=== PATIENT | female | born 1975 | race African-American/Black ===

== ENCOUNTER 2019-12-01 02:43 | Emergency (ER) | payer OTHER ==
--- NOTE | 2019-12-01 03:41 | PDOC ---
History of Present Illness - General Stated Complaint: DIARRHEA,WEAKNESS Time Seen by Provider: 12/01/19 03:31 - History of Present Illness Initial Comments: 12/01/19 04:03 44 y/o F no significant medical hx was here 2 days ago for abdominal pain, found to have diverticula w/o diverticulosis. presenting today with diarrhea since 4 pm yesterday. pain is alternating in nature and diffuse. exacerbated by po intake. She has had watery non-bloody diarrhea x 4. with 2-4 episodes of NBNB emesis since yesterday. She denies any fevers, chills, shortness of breath, chest pain, dysuira, hematuria. 12/01/19 04:04 Past History - Past Medical History Allergies/Adverse Reactions: Allergies Allergy/AdvReac Type Severity Reaction Status Date / Time No Known Allergies Allergy Verified 11/28/19 22:50 Home Medications: Ambulatory Orders Loperamide HCl [Loperamide] 2 mg PO TID PRN #15 capsule 12/01/19 Ondansetron [Zofran -] 4 mg PO Q8H PRN #12 tablet 12/01/19 COPD: No - Immunization History Td Vaccination: Yes TDAP Vaccination: Yes Immunization Up to Date: Yes - Psycho Social/Smoking Cessation Hx Smoking History: Never smoked Hx Alcohol Use: No Drug/Substance Use Hx: No Review of Systems - Review of Systems Constitutional: No: Chills, Fever HEENTM: No: Eye Pain, Blurred Vision Respiratory: No: Cough, Shortness of Breath Cardiac (ROS): No: Chest Pain ABD/GI: Yes: Nausea, Vomiting : No: Burning, Dysuria Musculoskeletal: No: Joint Pain, Neck Pain Integumentary: No: Bruising, Change in Color *Physical Exam - Physical Exam 12/01/19 04:29 GENERAL: Awake, alert, and fully oriented, in no acute distress HEAD: No signs of trauma, normocephalic, atraumatic EYES: PERRLA, EOMI, sclera anicteric, conjunctiva clear ENT: Auricles normal inspection, hearing grossly normal, nares patent, oropharynx clear without exudates. Moist mucosa NECK: Normal ROM, supple, no lymphadenopathy, JVD, or masses LUNGS: No distress, speaks full sentences, clear to auscultation bilaterally HEART: Regular rate and rhythm, normal S1 and S2, no murmurs, rubs or gallops, peripheral pulses normal and equal bilaterally. ABDOMEN: Soft, nontender, normoactive bowel sounds. No guarding, no rebound. No masses EXTREMITIES : Normal inspection, Normal range of motion, no edema. No clubbing or cyanosis NEUROLOGICAL: Cranial nerves II through XII grossly intact. Normal speech, no focal sensorimotor deficits SKIN: Warm, Dry, normal turgor, no rashes or lesions noted ED Treatment Course - LABORATORY CBC & Chemistry Diagram: 12/01/19 04:34 12/01/19 04:34 Medical Decision Making - Medical Decision Making 12/01/19 04:43 44 y/o F no significant medical hx was here 2 days ago for abdominal pain, had CT done 2 days ago for abdominal pain and ultrasound which showed the following -fat cotaining umbilical and supraumbilical hernias no acute pathology within abdomen or pelvis compression fracture of L1 with mild loss of height at T11 and T12 ultrasound US abd shows enlarged liver. Normal gallbladder without pericholecystic fluid or gallbladder wall thickening. Normal CBD 1.4 mm. No right hydronephrosis. No RUQ free fluid. workup cbc, cmp, lipase meds: fluids, zofran, 12/01/19 06:47 nausea resolved. 1 more episode of diarrhea given 4mg PO loperamide reassess labs unremarkable. 12/01/19 06:[address] Chao 12/04/19 19:14 Discharge - Discharge Information Problems reviewed: Yes Clinical Impression/Diagnosis: Nausea and vomiting Qualifiers: Vomiting type: unspecified Vomiting Intractability: unspecified Qualified Code(s): R11.2 - Nausea with vomiting, unspecified Condition: Stable Disposition: HOME - Additional Discharge Information Prescriptions: Loperamide HCl [Loperamide] 2 mg PO TID PRN #15 capsule PRN Reason: diarrhea Ondansetron [Zofran -] 4 mg PO Q8H PRN #12 tablet PRN Reason: Nausea - Follow up/Referral - Patient Discharge Instructions Patient Printed Discharge Instructions: DI for Nausea -- Adult, DI for Vomiting -- Adult, [facility]-Coronavirus Instructions Additional Instructions: You should return to the hospital if you experience return of persistent nausea and vomiting that does not resolve and does not allow you to tolerate any food or fluids, persistent fevers for greater than 2-3 more days, increasing abdominal pain that persists despite medications, persistent diarrhea, dizziness, syncope (fainting), or for any other concerns. Please stay home, eat bland foods, wash your hands with soap, and self-isolate to prevent the spread of the coronavirus. - Post Discharge Activity
[2019-12-01 04:23] VITALS: BMI 34.1
[2019-12-01] MEDS ORDERED: ONDANSETRON 4 MG/2 ML VIAL IVPUSH ONE (04:28)
[2019-12-01] MEDS ORDERED: SODIUM CHLORIDE 0.9% 500 ML INFUS.BAG IV ONE (04:28)
[2019-12-01] MEDS ORDERED: ONDANSETRON 4 MG/2 ML VIAL ONE (04:31)
--- NOTE | 2019-12-01 04:59 | PDOC ---
Attending Attestation - Resident Resident Name: Wanda Damian - ED Attending Attestation I have performed the following: I have examined & evaluated the patient, The case was reviewed & discussed with the resident, I agree w/resident's findings & plan, Exceptions are as noted - HPI HPI: 12/01/19 04:55 44yoF presents c/o loose stools x 3 days. Seen in ED 3d ago for same, had CTAP and RUQ sono, both unremarkable, no gallstones. Pt given sxs conrtrol and felt btetter. Symptoms retrned yesterday afternoon. No home symptom control. - Physicial Exam PE: 12/01/19 04:56 NAD, well appearing RRR CTABL soft NTND, surgcal wouned healing AO x 3 - Medical Decision Making 12/01/19 04:57 44yoF w/ continued/recurring n/v/d over 3 days. - labs - sxs control - DC w/ sxs control Discharge - Discharge Information Problems reviewed: Yes Clinical Impression/Diagnosis: Nausea and vomiting - Follow up/Referral - Patient Discharge Instructions - Post Discharge Activity
[2019-12-01 05:01] LABS: BASO % 0.3 % (0-2.0); HEMATOCRIT 40.4 % (32.4-45.2); HEMOGLOBIN 13.4 GM/dL (10.7-15.3); LYMPH % 33.5 % (8-40); MCH 28.9 pg (25.7-33.7); MCHC 33.2 g/dl (32.0-36.0); MEAN PLT VOLUME 8.2 fl (7.5-11.1); MONO % 7.7 % (3.8-10.2); NEUT % 58.5 % (42.8-82.8); PLATELET COUNT 223 K/MM3 (134-434); RBC 4.64 M/mm3 (3.60-5.2); RDW 12.5 % (11.6-15.6); WHITE BLOOD COUNT 4.3 K/mm3 (4.0-10.0)
[2019-12-01 05:32] LABS: ALBUMIN 3.3 g/dl (3.4-5.0); BILIRUBIN,TOTAL 0.5 mg/dL (0.2-1); CALCIUM 8.2 mg/dL (8.5-10.1); CREATININE 0.7 mg/dL (0.55-1.3); POTASSIUM 3.5 mmol/L (3.5-5.1); TOT PROT 7.4 g/dl (6.4-8.2)
[2019-12-01] MEDS ORDERED: LOPERAMIDE HCL 2 MG CAPSULE PO ONE (06:19)
--- NOTE | 2019-12-01 07:39 | PDOC ---
*Physical Exam - Vital Signs Last Vital Signs Temp Pulse Resp BP Pulse Ox 98.2 F 80 18 100/59 L 98 12/01/19 06:37 12/01/19 06:37 12/01/19 06:37 12/01/19 06:37 12/01/19 06:37 ED Treatment Course - LABORATORY CBC & Chemistry Diagram: 12/01/19 04:34 12/01/19 04:34 - ADDITIONAL ORDERS Additional order review: Laboratory Results 12/01/19 04:34 Sodium 137 Potassium 3.5 Chloride 104 Carbon Dioxide 24 Anion Gap 9 BUN 7.0 Creatinine 0.7 Est GFR (CKD-EPI)AfAm 122.99 Est GFR (CKD-EPI)NonAf 106.12 Random Glucose 118 H Calcium 8.2 L Total Bilirubin 0.5 AST 35 ALT 32 Alkaline Phosphatase 63 Total Protein 7.4 Albumin 3.3 L 12/01/19 04:34 RBC 4.64 MCV 87.0 MCHC 33.2 RDW 12.5 MPV 8.2 Neutrophils % 58.5 D Lymphocytes % 33.5 D Monocytes % 7.7 Eosinophils % 0.0 D Basophils % 0.3 - Medications Given in the ED: ED Medications Discontinued Medications Generic Name Dose Route Start Last Admin Trade Name Freq PRN Reason Stop Dose Admin Ondansetron HCl 4 mg 12/01/19 04:28 12/01/19 04:49 Zofran Injection IVPUSH 12/01/19 04:29 4 mg NOW ONE Administration Sodium Chloride 1,000 ml 12/01/19 04:28 12/01/19 04:48 Normal Saline - IV 12/01/19 04:29 1,000 ml ONCE ONE Administration Medical Decision Making - Medical Decision Making 12/01/19 07:37 Signed out to me by Dr. Damian. N/V/D crampy abd pain, seen 2 days ago, CTAP/US unremarkable for acute pathology. Back today for same complaint. Normal labs. Given IVF/Zofran. Appears better, to get Imodium, and discharge home. Home meds sent. [] meds [] re-eval [] discharge 12/01/19 08:24 Feels better, abdomen non-tender, in NAD, breathing well with normal heart sounds. No more nausea/vomiting, no more diarrhea, feels better. Lipase low, WBC low, no concerning findings, stable for discharge home. Discharge - Discharge Information Problems reviewed: Yes Clinical Impression/Diagnosis: Nausea and vomiting Qualifiers: Vomiting type: unspecified Vomiting Intractability: unspecified Qualified Code(s): R11.2 - Nausea with vomiting, unspecified Condition: Stable Disposition: HOME - Additional Discharge Information Prescriptions: Loperamide HCl [Loperamide] 2 mg PO TID PRN #15 capsule PRN Reason: diarrhea Ondansetron [Zofran -] 4 mg PO Q8H PRN #12 tablet PRN Reason: Nausea - Follow up/Referral - Patient Discharge Instructions Patient Printed Discharge Instructions: DI for Nausea -- Adult, DI for Vomiting -- Adult, [facility]-Coronavirus Instructions Additional Instructions: You should return to the hospital if you experience return of persistent nausea and vomiting that does not resolve and does not allow you to tolerate any food or fluids, persistent fevers for greater than 2-3 more days, increasing abdominal pain that persists despite medications, persistent diarrhea, dizziness, syncope (fainting), or for any other concerns. Please stay home, eat bland foods, wash your hands with soap, and self-isolate to prevent the spread of the coronavirus. - Post Discharge Activity
[2019-12-01 07:53] VITALS: BP 104/60; PULSE 75; TEMP 98.1
== END 2019-12-01 08:35 | disposition home or self-care (01) ==
LOC: JER 02:43
PROC: 3E033GC Introduction of Other Therapeutic Substance into Peripheral Vein, Percutaneous Approach (ICD-10-PCS; principal; 2019-12-01)
DX: R11.2 Nausea with vomiting, unspecified (principal); R16.0 Hepatomegaly, not elsewhere classified; K42.9 Umbilical hernia without obstruction or gangrene
CPT/HCPCS: 36415; 80053; 83690; 85025; 96374; 99284-25

== ENCOUNTER 2022-07-04 08:18 | Emergency (ER) | payer OTHER ==
[2022-07-04 08:29] VITALS: BP 134/90; PULSE 92; RESP 18; TEMP 98.6; BMI 34.9
== END 2022-07-04 10:33 | disposition home or self-care (01) ==
LOC: JER 08:18
DX: B34.9 Viral infection, unspecified (principal)
CPT/HCPCS: 0241U-QW; 99283-25

== ENCOUNTER 2022-08-08 08:30 | Emergency (ER) | payer OTHER ==
[2022-08-08 09:20] VITALS: BP 137/86; PULSE 101; RESP 19; TEMP 99.7; BMI 39.5
[2022-08-08] MEDS ORDERED: ACETAMINOPHEN 325 MG TABLET (FP) PO ONE (10:03)
[2022-08-08] MEDS ORDERED: ACETAMINOPHEN 325 MG TABLET (FP) ONE (10:14)
== END 2022-08-08 13:05 | disposition home or self-care (01) ==
LOC: JER 08:30
DX: U07.1 COVID-19 (principal)
CPT/HCPCS: 0241U-QW; 99283-25

== ENCOUNTER 2023-02-01 08:03 | Emergency (ER) | payer OTHER ==
[2023-02-01 08:11] VITALS: BP 110/79; PULSE 75; RESP 16; TEMP 97.7; BMI 37.5
[2023-02-01] MEDS ORDERED: SODIUM CHLORIDE 1,000 ML IV STA (09:25)
[2023-02-01] MEDS ORDERED: ACETAMINOPHEN 1000 MG/100 ML BAG IVPB ONE (09:27)
[2023-02-01] MEDS ORDERED: ACETAMINOPHEN INJECTION 100 ML IVPB ONE (09:46)
[2023-02-01 10:04] LABS: HEMATOCRIT 36.6 % (32.4-45.2); HEMOGLOBIN 12.4 GM/dL (10.7-15.3); MCH 29.3 pg (25.7-33.7); MEAN CELL VOLUME 86.3 fl (80-96); MEAN PLT VOLUME 8.4 fl (7.5-11.1); PLATELET COUNT 227 10^3/uL (134-434); RBC 4.24 M/mm3 (3.60-5.2); RDW 12.5 % (11.6-15.6); WHITE BLOOD COUNT 5.7 K/mm3 (4.0-10.0)
[2023-02-01 10:20] LABS: POTASSIUM 4.1 mmol/L (3.5-5.1)
[2023-02-01 10:21] LABS: CALCIUM 9.3 mg/dL (8.5-10.1)
[2023-02-01 10:22] LABS: BLOOD UREA NITROGEN 8.6 mg/dL (7-18)
[2023-02-01 10:25] LABS: ALBUMIN 3.4 g/dl (3.4-5.0)
[2023-02-01 10:26] LABS: ANISOCYTOSIS 0; CREATININE 0.6 mg/dL (0.55-1.3); MACROCYTOSIS 0
[2023-02-01 10:28] LABS: BILIRUBIN,TOTAL 0.9 mg/dL (0.2-1); TOT PROT 6.9 g/dl (6.4-8.2)
[2023-02-01 12:32] LABS: INR 1.03 (0.83-1.09); PROTHROMBIN TIME (PATIENT) 11.9 SEC (9.7-13.0)
[2023-02-01 12:34] LABS: ACTIVATED PTT 33.4 SECONDS (25.2-36.5)
== END 2023-02-01 13:01 | disposition home or self-care (01) ==
LOC: JER 08:03 → JERFT 08:03
PROC: 3E033NZ Introduction of Analgesics, Hypnotics, Sedatives into Peripheral Vein, Percutaneous Approach (ICD-10-PCS; principal; 2023-02-01)
PROC: 3E0337Z Introduction of Electrolytic and Water Balance Substance into Peripheral Vein, Percutaneous Approach (ICD-10-PCS; 2023-02-01)
DX: M79.10 Myalgia, unspecified site (principal); R68.83 Chills (without fever); R53.83 Other fatigue; R53.81 Other malaise; Z20.822 Contact with and (suspected) exposure to COVID-19
CPT/HCPCS: 0241U-QW; 36415; 80053; 83735; 84484; 84703; 85025; 85610; 85730; 93005; 93010; 99284-25

== ENCOUNTER 2023-07-02 10:55 | Emergency (ER) | payer OTHER ==
[2023-07-02 11:08] VITALS: BP 114/75; PULSE 75; RESP 18; TEMP 98.4; BMI 37.9
== END 2023-07-02 15:03 | disposition home or self-care (01) ==
LOC: JER 10:55
DX: R10.84 Generalized abdominal pain (principal); K59.04 Chronic idiopathic constipation
CPT/HCPCS: 99282-25

== ENCOUNTER 2024-01-01 08:18 | Emergency (ER) | payer OTHER ==
[2024-01-01 08:32] VITALS: BMI 38.0
[2024-01-01] MEDS ORDERED: ACETAMINOPHEN INJECTION 100 ML IVPB ONE (09:23)
[2024-01-01] MEDS: ACETAMINOPHEN 1000 MG/100 ML BAG IVPB ONE (09:44)
[2024-01-01 10:07] LABS: BASO % 0.6 % (0-2.0); HEMATOCRIT 41.8 % (32.4-45.2); HEMOGLOBIN 13.6 GM/dL (10.7-15.3); LYMPH % 52.3 % (8-40); MCH 28.7 pg (25.7-33.7); MCHC 32.5 g/dl (32.0-36.0); MEAN CELL VOLUME 88.3 fl (80-96); MEAN PLT VOLUME 9.2 fl (7.5-11.1); MONO % 5.3 % (3.8-10.2); NEUT % 40.8 % (42.8-82.8); PLATELET COUNT 248 10^3/uL (134-434); RBC 4.73 M/mm3 (3.60-5.2); RDW 13.3 % (11.6-15.6)
[2024-01-01 10:08] LABS: PH,URINE 6.5 (5.0-8.0); URINE APPEARANCE CLEAR; URINE BILIRUBIN NEGATIVE (NEGATIVE); URINE COLOR YELLOW; URINE GLUCOSE (UA) NEGATIVE (NEGATIVE); URINE KETONE NEGATIVE (NEGATIVE); URINE LEUK ESTERASE NEGATIVE (NEGATIVE); URINE NITRITE NEGATIVE (NEGATIVE); URINE PROTEIN NEGATIVE (NEGATIVE); URINE UROBILINOGEN 0.2 mg/dL (0.2-1.0)
[2024-01-01 10:13] LABS: INR 0.98 (0.83-1.09); PROTHROMBIN TIME (PATIENT) 11.4 SEC (9.7-13.0)
[2024-01-01 10:16] LABS: ACTIVATED PTT 31.4 SECONDS (25.2-36.5)
[2024-01-01 10:26] LABS: POTASSIUM 4.1 mmol/L (3.5-5.1)
[2024-01-01 10:28] LABS: ALBUMIN 3.8 g/dl (3.4-5.0); BLOOD UREA NITROGEN 7.1 mg/dL (7-18); CALCIUM 9.2 mg/dL (8.5-10.1); MAGNESIUM 2.3 mg/dL (1.8-2.4)
[2024-01-01 10:31] LABS: CREATININE 0.6 mg/dL (0.55-1.3)
[2024-01-01 10:33] LABS: BILIRUBIN,TOTAL 0.8 mg/dL (0.2-1); TOT PROT 7.6 g/dl (6.4-8.2)
[2024-01-01 11:54] VITALS: BP 134/80; PULSE 81; RESP 18; TEMP 98
== END 2024-01-01 11:54 | disposition home or self-care (01) ==
LOC: JER 08:18
PROC: 3E033NZ Introduction of Analgesics, Hypnotics, Sedatives into Peripheral Vein, Percutaneous Approach (ICD-10-PCS; principal; 2024-01-01)
DX: R51.9 Headache, unspecified (principal); R52 Pain, unspecified; R53.1 Weakness; R30.0 Dysuria; R07.9 Chest pain, unspecified; Z20.822 Contact with and (suspected) exposure to COVID-19
CPT/HCPCS: 0241U-QW; 36415; 71045-TC-FY; 80053; 81003; 83735; 84484; 85025; 85610; 85730; 86850; 86900; 86901; 87086; 93005; 93010; 99285-25; J0131